=== PATIENT | male | born 1990 | race American Indian/Alaskan Native ===

== ENCOUNTER 2022-06-16 22:05 | Emergency (ER) | payer MEDICAID ==
[2022-06-17] MEDS ORDERED: diphenhydrAMINE 50 MG/ML VIAL ONE (11:21)
[2022-06-17] MEDS ORDERED: HALOPERIDOL LACTATE 5 MG/1 ML INJ ONE (11:21)
[2022-06-17] MEDS ORDERED: ZIPRASIDONE MESYLATE 20 MG VIAL IM ONE ×2 (11:21→11:27)
[2022-06-17] MEDS ORDERED: diphenhydrAMINE 50 MG/ML VIAL IV ONE (11:27)
[2022-06-17] MEDS ORDERED: HALOPERIDOL LACTATE 5 MG/1 ML INJ IM ONE (11:27)
[2022-06-17 11:29] LABS: Basophils % (Auto) 0.5 % (0.0-1.8); Eosinophils # (Auto) 0.3 K/mm3 (0.0-0.4); Eosinophils % (Auto) 3.9 % (0.0-4.3); Hematocrit 45.8 % (35.5-45.6); Hemoglobin 14.7 gm/dl (11.8-15.2); Lymphocytes # (Auto) 1.4 K/mm3 (1.2-5.4); Mean Corpuscular HGB Conc 32 % (32-34); Mean Corpuscular Volume 93 fl (84-94); Monocytes # (Auto) 0.4 K/mm3 (0.0-0.8); Monocytes % (Auto) 6.3 % (0.0-7.3); Platelet Count 348 K/mm3 (140-440); Red Blood Count 4.93 M/mm3 (3.65-5.03); Red Cell Distribution Width 12.5 % (13.2-15.2)
[2022-06-17 11:39] LABS: BUN/Creatinine Ratio 10; Blood Urea Nitrogen 9 mg/dL (9-20); Hemolysis Index 20
[2022-06-17 11:43] LABS: Calcium 0.8 mg/dL (8.4-10.2)
--- NOTE | 2022-06-17 11:51 | Emergency Department Report ---
ED General Adult HPI - General Chief complaint: Psych Stated complaint: FEET HURTS/MENTAL EVAL PUI?: No Time Seen by Provider: 06/17/22 09:44 Source: patient, family Mode of arrival: Ambulatory Limitations: No Limitations - History of Present Illness Initial comments: psychosis , hallucination , depression mom states that he thinks about harming himself, not on any meds, no psych history before -: unknown Severity scale (0 -10): 0 Associated Symptoms: denies: denies other symptoms, confusion, chest pain Treatments Prior to Arrival: none - Related Data Previous Rx's Medication Instructions Recorded Last Taken Type Ibuprofen [Motrin] 800 mg PO TID PRN #30 tablet 10/01/13 Unknown Rx traMADoL [Ultram 50 MG tab] 50 mg PO Q6HR PRN #20 tablet 10/01/13 Unknown Rx Sertraline [Zoloft] 25 mg PO QDAY 30 Days #30 tab 06/18/22 Unknown Rx traZODone [Desyrel] 50 mg PO QHS 30 Days #30 tab 06/18/22 Unknown Rx Allergies Allergy/AdvReac Type Severity Reaction Status Date / Time No Known Allergies Allergy Verified 08/07/13 13:08 ED Review of Systems ROS: Stated complaint: FEET HURTS/MENTAL EVAL Other details as noted in HPI Constitutional: denies: chills, fever Eyes: denies: eye pain, eye discharge, vision change ENT: denies: ear pain, throat pain Respiratory: denies: cough, shortness of breath, wheezing Cardiovascular: denies: chest pain, palpitations Endocrine: no symptoms reported Gastrointestinal: denies: abdominal pain, nausea, diarrhea Genitourinary: denies: urgency, dysuria Musculoskeletal: denies: back pain, joint swelling, arthralgia Skin: denies: rash, lesions Neurological: denies: headache, weakness, paresthesias Psychiatric: denies: anxiety, depression Hematological/Lymphatic: denies: easy bleeding, easy bruising ED Past Medical Hx - Past Medical History Previous Medical History?: No Hx Hypertension: No - Surgical History Past Surgical History?: No - Social History Smoking Status: Never Smoker Substance Use Type: None - Medications Home Medications: Home Medications Medication Instructions Recorded Confirmed Last Taken Type Ibuprofen [Motrin] 800 mg PO TID PRN #30 tablet 10/01/13 Unknown Rx traMADoL [Ultram 50 MG tab] 50 mg PO Q6HR PRN #20 tablet 10/01/13 Unknown Rx Sertraline [Zoloft] 25 mg PO QDAY 30 Days #30 tab 06/18/22 Unknown Rx traZODone [Desyrel] 50 mg PO QHS 30 Days #30 tab 06/18/22 Unknown Rx ED Physical Exam - General Limitations: No Limitations ED Course Vital Signs 06/17/22 06/17/22 06/17/22 02:32 21:37 22:24 Temperature 98.6 F 98.0 F Pulse Rate 80 95 H Respiratory 16 16 Rate Blood Pressure 143/85 118/64 [Right] O2 Sat by Pulse 100 98 98 Oximetry ED Medical Decision Making - Lab Data Result diagrams: 06/17/22 10:32 06/17/22 12:33 - Medical Decision Making pt had a psychotic agitated episode while here , geodon had to be given, , calcium noted but will rpeat Critical care attestation.: If time is entered above; I have spent that time in minutes in the direct care of this critically ill patient, excluding procedure time. ED Disposition Clinical Impression: Psychosis Disposition: 30 STILL A PATIENT Is pt being admited?: No Does the pt Need Aspirin: No Condition: Stable Additional Instructions: OUTPATIENT MENTAL HEALTH RESOURCES [facility], [facility] Bridget Maier MD: [address] [place] [address] [place], [place] [id number] [place] [facility]: [employer] [address] [place] [address] [place] [address] [phone] [facility]: [facility] Healthcare: [address] [facility] [address] [facility] [place] [address] [facility] [address] [place] [facility]: Melvin Marshall MD: [address] [facility] [address] [facility][1] [id number] [facility]: [address] [place], [place] [id number] [phone] [place] CRISIS AND ACCESS LINE: Prescriptions: traZODone [Desyrel] 50 mg PO QHS 30 Days #30 tab Sertraline [Zoloft] 25 mg PO QDAY 30 Days #30 tab Referrals: VIRGEN MARTINEZ MD [Primary Care Provider] - 3-5 Days
[2022-06-17 14:14] LABS: BUN/Creatinine Ratio 10; Blood Urea Nitrogen 9 mg/dL (9-20); Hemolysis Index 4
[2022-06-17 14:15] LABS: Calcium 9.7 mg/dL (8.4-10.2)
[2022-06-17 21:52] LABS: Color,Urine Yellow (Yellow)
[2022-06-17 21:54] LABS: Benzodiazepines Screen,Urine Negative; Cannabinoid Screen,Urine Negative; Methadone Screen,Urine Negative; Mucus,Urine FEW /HPF; Opiate Screen,Urine Negative
[2022-06-17 21:55] LABS: RBC,Urine < 1.0 /HPF (0.0-6.0)
[2022-06-17 22:10] LABS: Amphetamine Screen,Urine Positive; Cocaine Screen,Urine Positive
--- NOTE | 2022-06-18 10:38 | Consultation ---
History of Present Illness - Reason for Consult Consult date: 06/18/22 Reason for consult: mental health evaluation - History of Present Psychiatric Illness The patient is a 31 year old male with unknown psychiatric history who presents to the ED for mental health evaluation. The patient was seen today. He is calm and cooperative. The patient reports ongoing depression. He states he came to the Ed to for "depression and check my blood." Per patient is naive to psyc hotropic medications. UDS is positive for cocaine and meth. The patient denies any current suicidal/homicidal ideation and denies hallucinations. PAST PSYCHIATRIC HISTORY Diagnoses: Denies Suicide attempts or Self-harm behavior: Denies Prior psychiatric hospitalizations: Denies Substance Abuse history: Marijuana, crack, Amphetamine Previous psychiatric medications tried:Denies Outpatient treatment: Denies PAST MEDICAL HISTORY: None reported Family Psychiatric History: None reported or documented SOCIAL HISTORY Marital Status: Single Living Arrangements: Lives with mother Employment Status: Unemployed Access to guns/weapons: Denies Education: 12th grade History of Abuse: Denies Legal History: None reported REVIEW OF SYSTEMS Constitutional: Negative for weight loss ENT: Negative for stridor Respiratory: Negative for cough or hemoptysis All other systems reviewed and are negative MENTAL STATUS EXAMINATION General Appearance and Behavior: Age appropriate, good hygiene, not wearing appropriate clothes, asleep, never opens her eyes Cooperation: cooperative Psychomotor Behavior: Psychomotor normal, irritable Mood: Depressed Affect and affective range: congruent with stated mood Thought Process: Goal directed Thought Content: Reality oriented Speech: normal rate and volume Suicidal Ideation: Denies Homicidal Ideation: Denies Hallucinations: Denies Delusions: None elicited Impulse Control: Limited Insight and Judgment: Limited Memory: Limited Attention:Attentive Orientation: Aox3 Assessment and Plan (1) Major depressive disorder (2) PolySubstance use abuse Treatment Plan Continue medications as previously prescribed Sertraline 25mg po daily Trazodone 50mg po qhs The patient is to get first dose of meds prior to leaving. Benefits and possible SE were explained to patient. She verbalizes understanding. Risks, benefits and alternatives of medications discussed with the patient, questions answered and consent obtained from patient. PSYCHOTHERAPY: Supportive psychotherapy provided MEDICAL: Per primary team DELIRIUM PRECAUTIONS: Please re-orient patient frequently, keep lights on during the day, and minimize benzodiazepines and opiates as these medications could worsen patient's confusion. 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 Foundry Molder will provide patient with psychiatric outpatient resources and safety plan. FOLLOW-UP: Will sign off. Thank you for the consult. Please contact with any questions and/or concerns Case discussed with Dr. Ricci who agrees with current disposition Medications and Allergies Medications and Allergies Allergies Allergy/AdvReac Type Severity Reaction Status Date / Time No Known Allergies Allergy Verified 08/07/13 13:08 Home Medications Medication Instructions Recorded Confirmed Last Taken Type Ibuprofen [Motrin] 800 mg PO TID PRN #30 tablet 10/01/13 Unknown Rx traMADoL [Ultram 50 MG tab] 50 mg PO Q6HR PRN #20 tablet 10/01/13 Unknown Rx Sertraline [Zoloft] 25 mg PO QDAY 30 Days #30 tab 06/18/22 Unknown Rx traZODone [Desyrel] 50 mg PO QHS 30 Days #30 tab 06/18/22 Unknown Rx Mental Status Exam - Vital signs Last Vital Signs Temp 98.0 F 06/17/22 22:24 Pulse 95 H 06/17/22 22:24 Resp 16 06/17/22 22:24 BP 118/64 06/17/22 22:24 Pulse Ox 98 06/17/22 22:24 Results Result Diagrams: 06/17/22 10:32 06/17/22 12:33 Abnormal lab results 06/17/22 06/17/22 06/17/22 Range/Units 10:32 10:32 10:32 Hct 45.8 H (35.5-45.6) % RDW 12.5 L (13.2-15.2) % Potassium 10.0 H* (3.6-5.0) mmol/L Carbon Dioxide 21 L (22-30) mmol/L Calcium 0.8 L* (8.4-10.2) mg/dL Salicylates < 0.3 L (2.8-20.0) mg/dL Acetaminophen (10.0-30.0) ug/mL 06/17/22 Range/Units 10:32 Hct (35.5-45.6) % RDW (13.2-15.2) % Potassium (3.6-5.0) mmol/L Carbon Dioxide (22-30) mmol/L Calcium (8.4-10.2) mg/dL Salicylates (2.8-20.0) mg/dL Acetaminophen 5.0 L (10.0-30.0) ug/mL All other labs normal.
[2022-06-18 11:23] VITALS: BP 104/50
--- NOTE | 2022-06-18 14:44 | Emergency Department Report ---
ED General Adult HPI - General Chief complaint: Psych Stated complaint: FEET HURTS/MENTAL EVAL PUI?: No Time Seen by Provider: 06/17/22 09:44 Source: patient, family Mode of arrival: Ambulatory Limitations: No Limitations - History of Present Illness Initial comments: This is a 31 year old male presented yesterday with psychosis , hallucination , depression mom states that he thinks about harming himself, not on any meds, no psych history before. Patient have been evaluated by [facility]. Severity scale (0 -10): 0 Associated Symptoms: denies: denies other symptoms, confusion, chest pain Treatments Prior to Arrival: none - Related Data Previous Rx's Medication Instructions Recorded Last Taken Type Ibuprofen [Motrin] 800 mg PO TID PRN #30 tablet 10/01/13 Unknown Rx traMADoL [Ultram 50 MG tab] 50 mg PO Q6HR PRN #20 tablet 10/01/13 Unknown Rx Sertraline [Zoloft] 25 mg PO QDAY 30 Days #30 tab 06/18/22 Unknown Rx traZODone [Desyrel] 50 mg PO QHS 30 Days #30 tab 06/18/22 Unknown Rx Allergies Allergy/AdvReac Type Severity Reaction Status Date / Time No Known Allergies Allergy Verified 08/07/13 13:08 ED Review of Systems ROS: Stated complaint: FEET HURTS/MENTAL EVAL Other details as noted in HPI Comment: All other systems reviewed and negative Constitutional: denies: chills, fever Eyes: denies: eye pain, eye discharge, vision change ENT: denies: ear pain, throat pain Respiratory: denies: cough, shortness of breath, wheezing Cardiovascular: denies: chest pain, palpitations Endocrine: no symptoms reported Gastrointestinal: denies: abdominal pain, nausea, diarrhea Genitourinary: denies: urgency, dysuria Musculoskeletal: denies: back pain, joint swelling, arthralgia Skin: denies: rash, lesions Neurological: denies: headache, weakness, paresthesias Psychiatric: denies: anxiety, depression Hematological/Lymphatic: denies: easy bleeding, easy bruising ED Past Medical Hx - Past Medical History Previous Medical History?: No Hx Hypertension: No - Surgical History Past Surgical History?: No - Social History Smoking Status: Never Smoker Substance Use Type: None - Medications Home Medications: Home Medications Medication Instructions Recorded Confirmed Last Taken Type Ibuprofen [Motrin] 800 mg PO TID PRN #30 tablet 10/01/13 Unknown Rx traMADoL [Ultram 50 MG tab] 50 mg PO Q6HR PRN #20 tablet 10/01/13 Unknown Rx Sertraline [Zoloft] 25 mg PO QDAY 30 Days #30 tab 06/18/22 Unknown Rx traZODone [Desyrel] 50 mg PO QHS 30 Days #30 tab 06/18/22 Unknown Rx ED Physical Exam - General Limitations: No Limitations General appearance: alert, in no apparent distress - Head Head exam: Present: atraumatic, normocephalic, normal inspection - Eye Eye exam: Present: normal appearance, PERRL, EOMI Pupils: Present: normal accommodation - ENT ENT exam: Present: normal exam, normal orophraynx, mucous membranes moist - Neck Neck exam: Present: normal inspection, full ROM - Respiratory Respiratory exam: Present: normal lung sounds bilaterally, respiratory distress - Cardiovascular Cardiovascular Exam: Present: regular rate, normal rhythm - GI/Abdominal GI/Abdominal exam: Present: soft - Extremities Exam Extremities exam: Present: normal inspection, full ROM - Back Exam Back exam: Present: normal inspection, full ROM - Neurological Exam Neurological exam: Present: alert, oriented X3, CN II-XII intact - Psychiatric Psychiatric exam: Present: normal affect, normal mood, anxious - Skin Skin exam: Present: normal color ED Course Vital Signs 06/17/22 06/17/22 06/17/22 02:32 21:37 22:24 Temperature 98.6 F 98.0 F Pulse Rate 80 95 H Respiratory 16 16 Rate Blood Pressure 143/85 118/64 [Right] O2 Sat by Pulse 100 98 98 Oximetry 06/18/22 11:21 Temperature 98.7 F Pulse Rate 81 Respiratory 16 Rate Blood Pressure 104/50 [Right] O2 Sat by Pulse 98 Oximetry ED Medical Decision Making - Lab Data Result diagrams: 06/17/22 10:32 06/17/22 12:33 - Medical Decision Making Assessment and Plan (1) Major depressive disorder (2) PolySubstance use abuse Treatment Plan Continue medications as previously prescribed Sertraline 25mg po daily Trazodone 50mg po qhs The patient is to get first dose of meds prior to leaving. Benefits and possible SE were explained to patient. She verbalizes understanding. Risks, benefits and alternatives of medications discussed with the patient, questions answered and consent obtained from patient. PSYCHOTHERAPY: Supportive psychotherapy provided MEDICAL: Per primary team DELIRIUM PRECAUTIONS: Please re-orient patient frequently, keep lights on during the day, and minimize benzodiazepines and opiates as these medications could worsen patient's confusion. 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 Configuration Management Manager will provide patient with psychiatric outpatient resources and safety plan. FOLLOW-UP: Will sign off. Thank you for the consult. Please contact with any questions and/or concerns Case discussed with Dr. Ricci who agrees with current disposition Critical care attestation.: If time is entered above; I have spent that time in minutes in the direct care of this critically ill patient, excluding procedure time. ED Disposition Clinical Impression: Psychosis, Major depressive disorder, Polysubstance use disorder Disposition: 01 HOME / SELF CARE / HOMELESS Is pt being admited?: No Does the pt Need Aspirin: No Condition: Stable Instructions: Living With Depression, Substance Use Disorder and Mental Illness Additional Instructions: OUTPATIENT MENTAL HEALTH RESOURCES [facility], [facility] Bridget Maier MD: [address] [facility] [address] [place] [address] [place] [address] [place] [facility]: [employer] [place] [address] [place] [address] [phone] [facility]: [facility] Healthcare: [address] [place] [address] [address] [place] [address] [place] [address] [facility] [id number] [place] [facility]: Melvin Marshall MD: [address] [facility] [address] [facility] [id number] [facility]: [address] [facility] [address] [place], [place] [id number] [phone] [place] CRISIS AND ACCESS LINE: Prescriptions: traZODone [Desyrel] 50 mg PO QHS 30 Days #30 tab Sertraline [Zoloft] 25 mg PO QDAY 30 Days #30 tab Referrals: VIRGEN MARTINEZ MD [Primary Care Provider] - 3-5 Days Time of Disposition: 14:45
[2022-06-18] MEDS ORDERED: SERTRALINE 25 MG TAB PO ONE (14:45)
== END 2022-06-18 15:00 | disposition home or self-care (01) ==
LOC: EEVIPCON 22:05 → ED 22:05
DX: F29 Unspecified psychosis not due to a substance or known physiological condition (principal); Z79.899 Other long term (current) drug therapy
CPT/HCPCS: 36415; 80048; 80307; 81001; 82310; 85025; 96372; 96374; 99284; J1200; J1630; J3486; 80320; G0480